=== PATIENT | female | born 1945 | race Caucasian/White ===

== ENCOUNTER 2016-11-02 16:17 | Emergency (ER) | payer MEDICARE ==
[~2016-11-02 16:17] MED LIST: CALCIUM CARBON500 M2 PO; CHILDREN'S ASPI81 M1 PO; FOLIC ACID1 M1 PO; OMEPRAZOLE20 M4 PO; PLAQUENIL200 M1 PO; PREDNISONE2.5 M1 PO; SERTRALINE HCL25 M3 PO; ULTRAM50 M1 PO; VITAMIN D31000 UNI3 PO; XANAX0.5 M1 PO
== END 2016-11-02 16:31 ==
LOC: EDMED 16:17
PROC: 2W3BXYZ Immobilization of Left Upper Arm using Other Device (ICD-10-PCS; principal; 2016-11-02)
DX: S42.202A Unspecified fracture of upper end of left humerus, initial encounter for closed fracture (principal); W19.XXXA Unspecified fall, initial encounter; Y92.019 Unspecified place in single-family (private) house as the place of occurrence of the external cause; Z98.890 Other specified postprocedural states